=== PATIENT | female | born 1955 | race Caucasian/White ===

== ENCOUNTER 2024-09-02 15:01 | Outpatient (AMB) | payer MEDICARE, SELFPAY ==
--- NOTE | 2024-09-02 15:06 | MHC.OFFVIS ---
Vital Signs 09/02/24 15:45 Height 5 ft 7 in Weight 265 lb BMI 41.5 Intake Visit Reasons: Right knee pain Intake Note: Kevin is a 68 year old female who presents with complaints of progressively worsening right knee pain. The patient describes her pain as sharp and severe in nature. Her pain has gotten worse over the last 6 months in spite of continued non operative treatments. She has failed the last 3 months of conservative treatment which has consisted of a home exercise program, Tylenol and Aleve. She has done physical therapy exercises which aggravated her pain. She has had multiple cortisone injections. The most recent cortisone injection gave her minimal relief. She has also had viscosupplementation injections which gave her fairly good relief. She wishes to hold off on surgery for as long as possible. At this point her right knee pain is interfering with her activities of daily living and her ability to sleep well through the night. Allergies doxycycline Allergy (Unknown, Verified 09/02/24 15:42) Unknown moxifloxacin [From Avelox] Allergy (Unknown, Verified 09/02/24 15:42) Unknown sulfamethoxazole [From Bactrim] Allergy (Unknown, Verified 09/02/24 15:42) Unknown trimethoprim [From Bactrim] Allergy (Unknown, Verified 09/02/24 15:42) Unknown Medication List - Last Reconciled 09/02/24 by David Goyal MD atorvastatin mg PO DAILY bimatoprost 0.03% drps ophthalmic (eye) brinzolamide-brimonidine 1-0.2 % (Simbrinza) drps ophthalmic (eye) gabapentin mg PO 3XD oxycodone mg PO quetiapine ER mg PO warfarin 5 - 15 mg PO DAILY Physical Exam Const Other: Well-nourished well-developed very friendly female awake alert and oriented x3 in no acute distress Extrem Other: Bilateral lower extremity examination shows good capillary refill, no skin lesions noted, normal sensation light touch Right knee examination shows a minimal effusion, palpable crepitus with range of motion, pain with range of, range of motion from -3 degrees to 115 degrees, no instability Results Reviewed Results Reviewed: X-rays of the patient's right knee show joint space narrowing, subchondral sclerosis, no acute bony abnormalities Assessment & Plan Assessment & Plan (1) Right knee pain: Code(s): M25.561 - Pain in right knee Category: Medical (2) Osteoarthritis of right knee: Code(s): M17.11 - Unilateral primary osteoarthritis, right knee Category: Medical Plan Ms. Golden presents with progressively worsening right knee pain due to osteoarthritis. I had a lengthy discussion with the patient regarding the treatment options. She wishes to hold off on surgery for as long as possible. I agree with this plan. She has not gotten good relief from cortisone injections in the past. Thus, I will see if her insurance company will cover another viscosupplementation injection. I will see her back once the injection is available. She will contact me prior to that time should any questions or concerns arise. I spent 21 minutes in reviewing the patient's records and imaging studies, seeing the patient and documenting in the medical record. Orders: Orders XR knee RT 3V Today M25.561 - Pain in right knee Coding Level of Care Code Est Pt Level 3 (81224) Complex EM visit Add On G2211 Diagnoses Right knee pain M25.561 Osteoarthritis of right knee M17.11
[2024-09-02 15:45] VITALS: BMI 41.5
--- OUTSIDE RECORDS SUMMARY | 2024-09-02 18:20 | XMS_ITS ---
Author Name [facility] Organization Unknown History of Medication Use Medication Directions Dispensed Refills Start Date End Date Stat us oxycodone 10 mg tablet TAKE 1 TABLET BY MOUTH THREE TIMES A DAY active quetiapine 25 mg tablet TAKE 1 1/2 TABLET BY MOUTH TWICE A DAY NEEDED FOR AGITATION/INSOMN IA active Synvisc-One 48 mg/6 mL intra-articular syringe active gabapentin 100 mg capsule TAKE 2 CAPSULES BY MOUTH TWICE A DAY active amoxicillin 500 mg tablet TAKE 1 TABLET BY MOUTH TWICE A DAY UNTIL FINISHED 04/10/2023 completed bimatoprost 0.03 % eye drops INSTILL 1 DROP IN BOTH EYES EVERY EVENING active atorvastatin 10 mg tablet TAKE 1 TABLET BY MOUTH EVERY DAY FOR 90 DAYS active gabapentin 300 mg capsule TAKE 1 CAPSULE BY MOUTH THREE TIMES A DAY active baclofen 10 mg tablet TAKE 1 TABLET BY MOUTH 3 TIMES A DAY FOR 7 DAYS 04/10/2023 completed bimatoprost 0.03 % eye drops INSTILL 1 DROP IN BOTH EYES EVERY EVENING active warfarin 5 mg tablet TAKE 1-3 TABLETS BY MOUTH ONCE A DAY active triamcinolone acetonide 0.025 % topical ointment APPLY TO AFFECTED AREA ON LIPS TWICE A DAY FOR 2 WEEKS FOLLOWED BY [facility] NEEDED 04/10/2023 completed quetiapine ER 50 mg tablet,extended release 24 hr active multivitamin active Allergies Allergen Reaction Severity Comment Documented Date Source Statu s DOXYCYCLINE ENS_[facility] BACTRIM E[facility] AVELOX ENS_[facility]ON[facility] Problems Problem Status Onset Date Problem Type Date of Resoluti on Source Pain of left hip joint active 2022-09-26 ProblemAct [facility] Osteoarthritis of right knee joint active 2022-10-04 ProblemAct [facility] Encounters Encounter Type Encounter Reason Primary Diagnosis Location Date Ambulatory [facility] [place] 09/26/2023 Ambulatory [facility] [place] 09/25/2023 Ambulatory [facility] [place] 04/10/2023 Ambulatory [facility] [place] 01/12/2023 Ambulatory [facility] [place] 01/12/2023 Ambulatory [facility] [place] 10/04/2022
--- OUTSIDE RECORDS SUMMARY | 2024-09-02 18:20 | XMS_ITS | Clinical Summary ---
Author Organization [facility] Address [address] [place] [address] Care Team Providers Care Janitorial Maintenance Worker Name Role Phone Bakari Rosales MD Primary Care Provider [phone] Allergies Active Allergy Reactions Criticality Noted Date Comments Moxifloxacin 04/17/2017 Sulfamethoxazole-Trimethoprim 2016 Doxycycline 09/30/2021 Metronidazole 04/17/2017 Levofloxacin 04/17/2017 Medications Medication Sig Dispensed Refills Start Date End Date Status gabapentin (NEURONTIN) 100 MG capsule 0 04/01/2017 Active AFLURIA PRESERVATIVE FREE 0.5 ML injection inject 0.5 milliliter intramuscularly 0 04/03/2017 Active latanoprost (XALATAN) 0.005 % ophthalmic solution 1 03/20/2017 Activ e Oxycodone HCl 10 MG TABS take 1 tablet by mouth three times a day 0 03/29/2017 Active QUEtiapine (SEROQUEL) 25 MG tablet 0 03/18/2017 Active simvastatin (ZOCOR) tablet 20 mg 0 02/23/2017 Active warfarin (COUMADIN) 5 MG tablet 1 03/18/2017 Active fluconazole (DIFLUCAN) 100 MG tablet TAKE 1 TABLET BY MOUTH ONCE DAILY FOR 7 DAYS 0 08/08/2021 Active Active Problems Problem Noted Date Diagnosed Date Arthritis of knee, right 03/07/2018 Chronic pain of right knee 04/17/2017 Family History Medical History Relation Name Comments Bipolar disorder Brother Parkinsonism Brother Cancer Father Bipolar disorder Mother Parkinsonism Mother Relation Name Status Comments Brother Father Mother Social History Tobacco Use Types Packs/Day Years Used Date Smoking Tobacco: Never Assessed Sex and Gender Information Value Date Recorded Sex Assigned at Not on file Gender Identity Not on file Sexual Orientation Not on file Job Start Date Occupation Industry Not on file Not on file Not on file Last Filed Vital Signs Vital Sign Reading Time Taken Comments Blood Pressure - - Pulse - - Temperature - - Respiratory Rate - - Oxygen Saturation - - Inhaled Oxygen Concentration - - Weight 104.3 kg (230 lb) 04/20/2022 2:15 PM EDT Height 170.2 cm (5' 7 ) 04/17/2017 2:03 PM EDT Body Mass Index 36.02 04/17/2017 2:03 PM EDT Plan of Treatment Health Maintenance Due Date Last Done Comments Hepatitis C Screening 1955 COVID-19 Vaccine (#1) 05[birth year]27/1955 Depression Screening 1966 BMI Counseling 1972 Preventative Health Evaluation 1972 DTap / Tdap / Td (1 - Tdap) 1973 Colon Cancer Screening (Colonoscopy) 11/26/1999 Breast Cancer Screening (Mammogram) 2004 Shingrix-Zoster Vaccine (1 of 2) 2004 Fall Risk Assessment 11/26/2019 Osteoporosis Screening (DEXA Scan) 11/26/2019 Pneumococcal Vaccine (2 of 2 - PCV) 11/26/2019 04/19/2007 Influenza Vaccine (#1) 2024 04/19/2007 RSV Adult > 60+ Yrs or Pregn ant (1 - 1-dose 75+ series) 2029 Hepatitis B Vaccines Aged Out No long er eligible based on patient's age to complete this topic RSV Ped < 20 months Aged Out No longe r eligible based on patient's age to complete this topic Care Teams Janitorial Maintenance Worker Relationship Specialty Start Date End Date Bakari Rosales MD [address] [place] [address] PCP - General Internal Medicine 04/17/17
--- OUTSIDE RECORDS SUMMARY | 2024-09-02 18:43 | XMS_ITS | Clinical Summary ---
Author Organization [facility] Address [address] [place] [address] Care Team Providers Care High Reach Operator Name Role Phone Bakari Rosales MD Primary Care Provider [phone] Allergies Active Allergy Reactions Criticality Noted Date [...] age to complete this topic Care Teams High Reach Operator Relationship Specialty Start Date End Date Bakari Rosales MD [address] [place] [address] PCP - General Internal Medicine 04/17/17
--- OUTSIDE RECORDS SUMMARY | 2024-09-02 18:43 | XMS_ITS | Data Portability ---
Author Organization [place] [facility] Anahi Bashir AONE [place] Address [address] [place] [address] Care Team Providers Care Documentation Specialist Name Role Phone TOSIN HILL Primary Care Provider Assessment Encounter Date Assessment Date Assessment LastModified by Organization Details LastModified Time 09/26/2022 09/26/2022 Pleasant 66-year -old female history of left total hip replacement performed at the [facility] back in 2009. This appears to be an overuse injury. She states she was cleaning a couple of days prior for which she was in awkward positions . She has a well-seated well-positioned total hip arthroplasty with cable wires in place no obvious acute bony abnormality. She does have severe arthritis of the right hip however asymptomatic at this time. Take [id number] pain medication. She can utilize ancillary assistive walking devices for ambulation fall prevention. Did offer a 1 week follow-up appointment however she states she has a scheduled follow-up appointment on 10/11/2022. Patient understands if her symptoms worsen regarding her left hip she needs to go to ER. She also has chronic back problems for which she denies any urinary bowel changes or saddle anesthesia. Pain is managed by her primary care. Indirect care and treatment in conjunction with Dr. Goyal Additional treatment plan discussed with the patient in detail included the following; - Provider focused nonsteroidal anti-inflammatory regimen (discussed were the pros, cons, benefits and risks as well as any black box warnings) - Analgesic pain medication for pain suppression (discussed were the pros, cons, benefits and risks as well as any black box warnings) - The use of topical pain relieving medication were discussed - The use of ice to decrease inflammation and pain - The use of assistive ambulatory devices for ambulation and fall prevention - Formal specific guided physical therapy program I reviewed my findings at length with the patient today. ? ? ?We discussed the nature and etiology of this problem along with current treatment options. We discussed the expected course and outcomes and what to expect. We also discussed risks and benefits. ? ? ?All of their questions were answered today, and there was exhibited understanding and comprehension of all that was discussed. 10 minutes were spent reviewing previous imaging and charting. ? ? ?10 minutes were spent obtaining patient history. ? ? ?5 minutes were spent on physical exam. ? ? ?5? ? ?minutes were spent explaining diagnosis and assessment. Today's documentation was made using voice recognition software. This note may contain grammatical errors secondary to the software. Not available 09/26/2022 13:56:50 10/04/2022 10/04/2022 Diagnosis #1 rig ht knee osteoarthritis with arthralgia treatment plan Synvisc 1 injection after verbal consent was granted for injection of the right knee. The procedure was carried out. Patient tolerated the procedure well. Aftercare instructions were discussed in detail. Follow-up visit 3 months time for repeat clinical exam. Should her symptoms not improve she should contact my office. She agrees with the above-noted plan. Indirect care and treatment in conjunction with Dr. Stephen Additional treatment plan discussed with the patient in detail included the following; - Provider focused nonsteroidal anti-inflammatory regimen (discussed were the pros, cons, benefits and risks as well as any black box warnings) - Analgesic pain medication for pain suppression (discussed were the pros, cons, benefits and risks as well as any black box warnings) - The use of topical pain relieving medication were discussed - The use of ice to decrease inflammation and pain - The use of assistive ambulatory devices for ambulation and fall prevention - Formal specific guided physical therapy program I reviewed my findings at length with the patient today. ? ? ?We discussed the nature and etiology of this problem along with current treatment options. We discussed the expected course and outcomes and what to expect. We also discussed risks and benefits. ? ? ?All of their questions were answered today, and there was exhibited understanding and comprehension of all that was discussed. 10 minutes were spent reviewing previous imaging and charting. ? ? ?10 minutes were spent obtaining patient history. ? ? ?5 minutes were spent on physical exam. ? ? ?5? ? ?minutes were spent explaining diagnosis and assessment. Today's documentation was made using voice recognition software. This note may contain grammatical errors secondary to the software. Not available 10/04/2022 14:53:09 04/10/2023 04/10/2023 Pleasant 67-year -old female with osteoarthritis and arthralgia of the right knee joint gets good relief with viscosupplementation injection. She opted for Synvisc 1 injection of the right knee at today's visit. After verbal consent was granted. The procedure was carried out for which the patient tolerated the procedure well. Aftercare instructions were discussed in detail. Follow-up visit 6 months time for repeat clinical exam should her symptoms not improve or worsen she should immediately contact my office. The patient agrees with above-noted plan. Indirect care and treatment in conjunction with Dr. Stephen Additional treatment plan discussed with the patient (only initiated if in boldface font) otherwise not applicable. Treatment may include the following; - Provider focused nonsteroidal anti-inflammatory regimen (discussed were the pros, cons, benefits and risks as well as any black box warnings) in patients over 60 years old they should be very cautious in taking these medications due to potential decreased kidney function and or elevated blood pressure. - Analgesic pain medication for pain suppression (discussed were the pros, cons, benefits and risks as well as any black box warnings) - The use of topical pain relieving medication were discussed - The use of ice to decrease inflammation and pain - The use of assistive ambulatory devices for ambulation and fall prevention - Formal specific guided physical therapy program I reviewed my findings at length with the patient today. ? ? ?We discussed the nature and etiology of this problem along with current treatment options. We discussed the expected course and outcomes and what to expect. We also discussed risks and benefits. ? ? ? All of their questions were answered today, and there was exhibited understanding and comprehension of all that was discussed. Time Spent: 10 minutes were spent reviewing previous imaging and charting. ? ? ?10 minutes were spent obtaining patient history. ? ? ?5 minutes were spent on physical exam. ? ? ?5? ? ?minutes were spent explaining diagnosis and assessment. Today's documentation was made using voice recognition software. This note may contain grammatical errors secondary to the software. Documenting Provider: Chris Stephen MD Not available 04/11/2023 07:42:21 09/25/2023 09/25/2023 67-year-old fema le with right knee pain secondary to advanced osteoarthritis. She has an excellent track record with viscosupplementation injections. She wishes to proceed with new viscosupplementation injection. Follow-up pending insurance authorization. This patient was seen and evaluated by Bradly Arevalo MS, ELLEN in indirect conjunction with documenting/supervisin g provider Chris Stephen MD. He agrees with history, physical examination, tests/diagnostic imaging, and treatment plan. This document was generated using voice recognition software. As a result, there may be unintended spelling, grammatical and/or textual errors. [email or web address] Not available 09/25/2023 14:29:30 12/06/2023 12/06/2023 HPI: Patient presents for Synvisc One viscosupplementation injection for the treatment of right knee pain. All questions are answered to the patient's satisfaction. Exam: Knee(s) examined to show no sign of infection. Skin is intact. Score of 2 or more on Kellgren Nehemiah scale. Tenderness to palpation of joint line. Distal checks are intact. Assessment/Plan: Knee pain secondary to osteoarthritis. See the attached procedure note. Follow up per viscosupplementation protocol. Follow up sooner with any problems. This patient was seen and evaluated by Bradly Arevalo MS, ELLEN in indirect conjunction with documenting/supervisin g provider Chris Stephen MD. He agrees with history, physical examination, tests/diagnostic imaging, and treatment plan. [email or web address] Not available 12/06/2023 15:25:43 Plan of Treatment Reminders Order Date Submit Date Provider Last Modified By Organization Details Last Modified Time Details Appointments None recorded. Lab None recorded. Referral None recorded. Procedures intra-artic ular injection, knee, viscosupple ment (PROC) - Please check insurance for [employer] on, insurance preferred med.Knee Laterality: Right*Tod means have to wait until early October 2023 before she qualifies for viscosupple mentation. 2023 024 [email or web address] Not available 15:52:31 Surgeries None recorded. Imaging XR, knee, 3 view 2022 023 [facility], [address], [place], [address], 3 06:56:42 XR, hip, bilateral, 3 or 4 view 2022 023 [facility], [address], [place], [address], 3 08:15:35 Medication Orders Synvisc-One 48 mg/6 mL intra-artic ular syringe 2023 024 [email or web address] [id number], [address] [place], [address], 4 15:50:49 Synvisc-One 48 mg/6 mL intra-artic ular syringe 2022 023 [id number], [address] [place], [address], 3 06:56:42 Synvisc-One 48 mg/6 mL intra-artic ular syringe 2022 023 [id number], [address], [place], [id number], 3 16:27:24 Patient TargetsNo targets recorded. Patient Instructions Encounter Date Encounter Id Patient Instructions Last Modified By Organization Details Last Modified Time 09/26/2022 [id number] well-seated well-positioned total hip arthroplasty with cable wires in place no obvious acute bony abnormality. She does have severe arthritis of the right hip. Not available 09/26/2022 13:56:11 10/04/2022 [id number] You have been provided with a viscosupplementation injection in order to reduce the pain that you are experiencing from your arthritis. The injection consists of a lubricating injection called hyaluronic acid. Please note that not everyone will have a lasting response following the injection. PATIENT INSTRUCTIONS I recommend icing the affected area for 20 minutes 3-4 times per day. It is recommended that you refrain from any high level activities using the joint or limb that was injected for approximately 24-48 hours. Normal day-to-day activities are generally not a problem. POSSIBLE SIDE EFFECTS Individuals with dark complexions may experience some skin discoloration locally at the site of the injection. There is the possibility of an increase in discomfort within 48 hours following the injection. This is called a ? f lare? . To help minimize the chances of this, please see the post-injection instructions above. There is a less than 1% chance of an infection. If you notice any signs of infection (redness, warmth, drainage, fever greater than 100 degrees) please call our office or contact us through the portal AGUSTIN. Not available 10/04/2022 14:53:56 04/10/2023 [id number] You have been pr ovided with a viscosupplementation injection in order to reduce the pain that you are experiencing from your arthritis. The injection consists of a lubricating injection called hyaluronic acid. Please note that not everyone will have a lasting response following the injection. PATIENT INSTRUCTIONS I recommend icing the affected area for 20 minutes 3-4 times per day. It is recommended that you refrain from any high level activities using the joint or limb that was injected for approximately 24-48 hours. Normal day-to-day activities are generally not a problem. POSSIBLE SIDE EFFECTS Individuals with dark complexions may experience some skin discoloration locally at the site of the injection. There is the possibility of an increase in discomfort within 48 hours following the injection. This is called a ? f lare? . To help minimize the chances of this, please see the post-injection instructions above. There is a less than 1% chance of an infection. If you notice any signs of infection (redness, warmth, drainage, fever greater than 100 degrees) please call our office or contact us through the portal AGUSTIN. Not available 04/10/2023 14:37:52 X-rays performed at today's visit AP, lateral of the right knee revealed predominantly lateral compartment patellofemoral compartment grade 4 degenerative changes without acute bony abnormality. She was unable to tolerate the positioning of sunrise view so therefore this was deferred. Not available 04/11/2023 07:38:25 12/06/2023 [id number] You have been pr ovided with a viscosupplementation injection in order to reduce the pain that you are experiencing from your arthritis. The injection consists of a lubricating injection called hyaluronic acid. Please note that not everyone will have a lasting response following the injection. PATIENT INSTRUCTIONS I recommend icing the affected area for 20 minutes 3-4 times per day. It is recommended that you refrain from any high level activities using the joint or limb that was injected for approximately 24-48 hours. Normal day-to-day activities are generally not a problem. POSSIBLE SIDE EFFECTS Individuals with dark complexions may experience some skin discoloration locally at the site of the injection. There is the possibility of an increase in discomfort within 48 hours following the injection. This is called a ? f lare? . To help minimize the chances of this, please see the post-injection instructions above. There is a less than 1% chance of an infection. If you notice any signs of infection (redness, warmth, drainage, fever greater than 100 degrees) please call our office or contact us through the portal [facility]USTIN. [email or web address] Not available 12/06/2023 14:55:35 Reason for Referral None Reported. Problems Name Problem SNOMED Code Status Onset Date Resolution Date Notes Provider Name and Address Organization Details Recorded Time Pain of left hip joint 8818872650625 00 Active 2022 BRADLY SANZ PA-C [address], [place], [address], [place] [facility] 3 13:54:39 Osteoarthri tis of right knee joint 0881246110908 00 Active 2022 BRADLY SANZ PA-C [address], [place], [address], [place] [facility] 3 14:53:22 Problem Notes None recorded. Procedures Surgical History Date Name Laterality Status Provider Name and Address Organization Details Recorded Time 12/06/2023 Synvisc-On e Knee Inj w/US completed BRADLY AREVALO PA-C [address], [place], [address], [place] [facility] 12/06/2023 15:23:47 04/10/2023 Synvisc-On e Knee Inj completed BRADLY SANZ PA-C [address] [facility],[address], [place], [address], [facility] 04/11/2023 07:41:08 10/04/2022 Synvisc-On e Knee Inj completed BRADLY SANZ PA-C [address] [facility],[address], [place], [address], [facility] 10/04/2022 14:52:33 Imaging Results None recorded. Procedure Notes None recorded. Medical Equipment None Reported. Allergies Allergen ID Allergen Name Allergen Category Reaction Reaction Severity Criticality Documentation Date Start Date Code Code System Note Provider Name and Address Organization Details Recorded Time 1506 Avelox medicatio n Not available Not available Not available 09/26/2022 27886 6 RxNorm Rosa Maria rivera, [facility], [facility] 3 13:15:24 1508 Bactrim medicatio n Not available Not available Not available 09/26/2022 93892 9 RxNorm Rosa Maria rivera, [facility], [facility] 3 13:15:32 1510 doxycycli ne Not available Not available Not available Not available 09/26/2022 3640 RxNorm Rosa Maria rivera, [facility], [facility] 3 13:15:38 Medications Name Sig Start Date Stop Date Status Note LastModified by Organization Details LastModified Time quetiapine 25 mg tablet TAKE 1 & 1/2 TABLET BY MOUTH TWICE A DAY NEEDED FOR AGITATION /INSOMNIA active Not Available Not Available No t Available latanoprost 0.005 % eye drops INSTILL 1 DROP IN BOTH EYES AT BEDTIME 04/10 completed Not Available Not Available Not Available atorvastati n 10 mg tablet TAKE 1 TABLET BY MOUTH EVERY DAY FOR 90 DAYS active Not Available Not Available No t Available travoprost 0.004 % eye drops INSTILL 1 DROP IN BOTH EYES EVERY NIGHT DIRECTED 09/24 completed Not Available Not Available Not Available bimatoprost 0.03 % eye drops INSTILL 1 DROP IN BOTH EYES EVERY EVENING active Not Available Not Available No t Available amoxicillin 500 mg tablet TAKE 1 TABLET BY MOUTH TWICE A DAY UNTIL FINISHED 04/10 completed Not Available Not Available Not Available baclofen 10 mg tablet TAKE 1 TABLET BY MOUTH 3 TIMES A DAY FOR 7 DAYS 04/10 completed Not Available Not Available Not Available simvastatin 20 mg tablet TAKE 1 TABLET BY MOUTH EVERY DAY AT BEDTIME FOR 90 DAYS 04/10 completed Not Available Not Available Not Available warfarin 5 mg tablet TAKE 1-3 TABLETS BY MOUTH ONCE A DAY active Not Available Not Available No t Available triamcinolo ne acetonide 0.025 % topical ointment APPLY TO AFFECTED AREA ON LIPS TWICE A DAY FOR 2 WEEKS FOLLOWED BY [facility] NEEDED 04/10 completed Not Available Not Available Not Available gabapentin 300 mg capsule TAKE 1 CAPSULE BY MOUTH THREE TIMES A DAY active Not Available Not Available No t Available gabapentin 100 mg capsule TAKE 2 CAPSULE BY MOUTH TWICE A DAY & 1 CAPSULE AT 13:00 active Not Available Not Available No t Available amoxicillin 875 mg-potassiu m clavulanate 125 mg tablet TAKE 1 TABLET BY MOUTH TWICE A DAY FOR 10 DAYS 04/10 completed Not Available Not Available Not Available ciclopirox 0.77 % topical cream APPLY TWICE A DAY TO AFFECTED AREAS UNDER BREASTS AND GROIN 09/24 completed Not Available Not Available Not Available CoQ10 active Not Available Not Availa ble Not Available multivitami n active Not Available Not Available Not Available bimatoprost active Not Available Not A vailable Not Available oxycodone 10 mg tablet TAKE 1 TABLET BY MOUTH 3 TIMES A DAY active Not Available Not Available No t Available quetiapine ER 50 mg tablet,exte nded release 24 hr active Not Available Not Available Not Available Synvisc-One 48 mg/6 mL intra-artic ular syringe Take 48 mg by intraarti cular route. 2023 active Not Available Not Available Not Avai lable Probiotic active Not Available Not Esperanza ilable Not Available Vitals Date Recorded Body height Body mass index (BMI) Body weight Provider Name and Address Organization Details Last Updated DateTime 09/25/2023 170.18 cm 41.5 kg/m2 834975.[address] [place] [facility] 09/25/2023 14:16:33 Date Recorded Body height Provider Name an d Address Organization Details Last Updated DateTime 12/06/2023 170.[address] [place] [facility] 12/06/2023 14:55:43 Date Recorded Body weight Provider Name an d Address Organization Details Last Updated DateTime 09/26/2022 550226.25 g Rosa Maria [place] [facility] 09/26/2022 13:17:44 Social History Question Answer Notes LastModified by Organizat ion Details LastModified Time Tobacco Smoking Status Never Smoker Kristie rivera, [place] [facility] 09/25/2023 14:16:54 What Is Your Level Of Alcohol Consumption? None Information not available 09/25/2023 Do You Use Any Illicit Or Recreational Drugs? No Information not available 09/25/2023 Do You Or Have You Ever Used Any Other Forms Of Tobacco Or Nicotine? No Information not available 09/25/2023 Sex: Unknown Functional Status None recorded. Mental Status None recorded. Family History Nothing Reported. Medical History Condition Response Hyperthyroidism Y Arthritis Y Gynecological HistoryNo gynecological history recorded. Obstetrics History GPAL:G 0 P 0 0 0 0 Past Encounters Encounter ID Performer Location Encounter Start Date Encounter Closed Date Diagnosis/Indication Diagnosis SNOMED-CT Code Diagnosis ICD10 Code Diagnosis Note [id number] MD ROBINA Sosa [address] [facility] [address] [place] [address] 09/26/2022 13:10:22 09/26/2022 13:54:13 Bilateral hip joint pain 4592949111 9526670 M25.551 M25.552 Pain of le ft hip joint 4708235200 28941 M25.552 History of total replacement of left hip joint 8892147797 667638 Z96.642 [id number] MD ROBINA Hopkins [address] [facility] [address] [place] [address] 10/04/2022 13:50:47 10/04/2022 14:25:48 Osteoarthritis of right knee joint 9335409831 71178 M17.11 Osteoarthr itis of knee 896762595 M17.9 [id number] MD ROBINA Hopkins [address] [facility] [address] [place] [address] 04/10/2023 14:31:58 04/10/2023 15:12:27 Pain of right knee joint 8168968270 38904 M25.561 Osteoarthr itis of right knee joint 6413847194 55469 M17.11 [id number] MD ROBINA Hopkins [place] [address] [facility] [address] [place] [address] 09/25/2023 14:03:51 09/25/2023 14:27:26 Osteoarthritis of right knee joint 7026540842 66658 M17.11 [id number] ELLEN RAMOS [facility] [address] [facility] [address] [place] [address] 12/06/2023 14:49:09 12/06/2023 15:25:28 Osteoarthritis of right knee joint 8583080814 M17.11 Health Concerns Section Related Observation LastModified by Organization Detai ls LastModified Time None Recorded Concern Status LastModified by Organization Details LastModified Time None Recorded Advance Directives Directive None Recorded Payers Encounter Date Sequence Insurance Name Policy Number Policy Sanchez Covered Member ID Sanchez Member ID Guarantor Name 09/26/2022 1 [place] Cassandrajanel Deena Golden [id number] 09/26/2022 2 [place] Ish Golden [id number] [facility] 10/04/2022 1 [place] Kevin Deena Golden [id number] 10/04/2022 2 [place] Ish Golden [id number] Kevin Golden 04/10/2023 1 [place] Cassandrajanel Deena Golden [id number] [facility] Golden 04/10/2023 2 [place] Ish Golden [id number] Kevin Golden 09/25/2023 1 [place] Kevin Golden [id number] Kevin Golden 09/25/2023 2 [place]PLOYEE PROGRAM 113 Ish Golden [id number] Kevin Golden 12/06/2023 1 [place] Kevin Golden [id number] Kevin Golden 12/06/2023 2 [facility]: FEDERAL EMPLOYEE PROGRAM Ish Golden [id number] Kevin Golden Notes Date Note Type Note Provider Name and Address Organization Details Recorded Time 3 text/html This is a very pleasant 66-year-old female here for same-day visit with chief complaint of severe left groin pain onset of symptoms yesterday for which she said was a excruciating . She states she is on chronic narcotic pain medication by her primary care due to chronic back problems and generalized pain syndrome. She has history of left total hip replacement done at the [facility] back in 2009. Patient states that she was cleaning on the floor in awkward positions approximately 2 days ago which may have been an exacerbating factor. She in fact states that she has improvement of her symptoms She denies any falls or trauma denies any fevers, chills, flulike symptoms, cough, warmth overlying the left hip joint. BRADLY SANZ PA-C [address] [facility],[address], [address], [place] [facility] 09/27/2022 08:36:45 3 text/html Pleasant 66-year-old female with degenerative joint disease of the right knee. Try to limit the amount of cortisone injection she receives. She states she gets good relief with viscosupplementation injection. She is here for Synvisc 1 injection of the right knee. Pain is medial in nature with walking she does utilize a walker due to chronic hip and back problems. She is currently not a ideal candidate for surgery due to elevated BMI and comorbidities. BRADLY SANZ PA-C [address] [facility],[address] [address], [place], [address], [place] [facility] 10/04/2022 14:54:36 3 text/html This is a pleasant 67-year-old female with severe osteoarthritis of the right knee joint gets good relief with viscosupplementation injection. Its been greater than 6 months since her last injection which suits her well however is since worn off. Her pain is generalized in nature overlying the right knee. She does have a history of chronic lymphedema. She takes ajzd-tsh-cvqwyaj pain medication for symptomatic relief. She denies any fevers or chills denies any flulike symptoms. She also denies any warmth overlying the right knee joint or any abnormal swelling or redness. She grants verbal consent for Synvisc 1 injection of the right knee joint. X-rays performed at today's visit AP, lateral of the right knee revealed predominantly lateral compartment patellofemoral compartment grade 4 degenerative changes without acute bony abnormality. She was unable to tolerate the positioning of sunrise view so therefore this was deferred. BRADLY SANZ PA-C [address] [facility] [address], [place], [address], [place] [facility] 04/11/2023 07:43:55 4 text/html 67-year-old female presents with chief complaint of right knee pain. She has known osteoarthritis of the right knee which has been present for many years. She has been under the care of Bradly Sanz up until his recent heart or from this practice. He has treated her with viscosupplementation injections with excellent results. She has had approximately 6 lifetime injections of viscosupplementation to the right knee. The most recent was approximately 5 months ago. She has begun to experience some weakness at the knee and is anticipating recurrence of her classic osteoarthritis symptoms. She is hopeful to initiate the process of authorization for a new series of viscosupplementation. Otherwise, there has been no substantial change in character quality or location of her symptoms. BRADLY AREVALO PA-C [address], [place], [address], [place] [facility] 09/25/2023 14:30:34 OBGyn Episode No OBEpisode recorded.
== END 2024-09-02 15:56 | disposition home or self-care (01) ==
PROVIDERS: Visit Provider Orthopaedic Surgery
DX: M17.11 Unilateral primary osteoarthritis, right knee (principal)
CPT/HCPCS: 99213; G2211

== ENCOUNTER 2024-09-02 15:17 | Outpatient (REF) | payer BC, MEDICARE, SELFPAY ==
--- NOTE | ~2024-09-02 | XR_ITS ---
CLINICAL HISTORY: M25.561 - Pain in right knee 3 view right knee Comparison: None Findings: There is moderately severe lateral compartment joint space narrowing Trace right knee joint effusion. No fracture or acute malalignment Impression: Moderately severe lateral compartment joint space narrowing. Trace knee joint effusion. This document has been electronically signed by: Fernando Sahu MD on 09/04/2024 07:46:33
--- OUTSIDE RECORDS SUMMARY | 2024-09-03 18:03 | XMS_ITS | Clinical Summary ---
Author Organization [facility] Address [address] [place] [address] Care Team Providers Care Director Of Anesthesia Services Name Role Phone Bakari Rosales MD Primary Care Provider [phone] Allergies Active Allergy Reactions Criticality Noted Date [...] age to complete this topic Care Teams Director Of Anesthesia Services Relationship Specialty Start Date End Date Bakari Rosales MD [address] [place] [address] PCP - General Internal Medicine 04/17/17
== END 2024-09-02 15:18 | disposition home or self-care (01) ==
LOC: HO.HOSX 15:17
PROVIDERS: Visit Provider Orthopaedic Surgery
DX: M25.561 Pain in right knee (principal); M17.11 Unilateral primary osteoarthritis, right knee
CPT/HCPCS: 73562; 99212

== ENCOUNTER → 2024-09-02 15:17 | Outpatient (BNV) | payer BC, MEDICARE, SELFPAY | PROVIDERS: Visit Provider Radiology Vascular & Interventional Radiology | DX: M25.861 Other specified joint disorders, right knee (principal) | CPT/HCPCS: 73562 ==

== ENCOUNTER 2024-09-18 14:58 | Outpatient (AMB) | payer MEDICARE, BC, SELFPAY ==
--- NOTE | 2024-09-18 15:00 | MHC.OFFVIS ---
Vital Signs 09/18/24 15:03 Height 5 ft 7 in Weight 265 lb BMI 41.5 Intake Visit Reasons: Right knee pain Intake Note: Kevin is a 68 year old female who presents with complaints of progressively worsening right knee pain. The patient describes her pain as sharp and severe in nature. Her pain has gotten worse over the last 6 months in spite of continued non operative treatments. She has failed the last 3 months of conservative treatment which has consisted of a home exercise program, Tylenol and Aleve. She has done physical therapy exercises which aggravated her pain. She has had multiple cortisone injections. The most recent cortisone injection gave her minimal relief. She has also had viscosupplementation injections which gave her fairly good relief. She wishes to hold off on surgery for as long as possible. At this point her right knee pain is interfering with her activities of daily living and her ability to sleep well through the night. Allergies doxycycline Allergy (Unknown, Verified 09/18/24 15:03) Unknown moxifloxacin [From Avelox] Allergy (Unknown, Verified 09/18/24 15:03) Unknown sulfamethoxazole [From Bactrim] Allergy (Unknown, Verified 09/18/24 15:03) Unknown trimethoprim [From Bactrim] Allergy (Unknown, Verified 09/18/24 15:03) Unknown Medication List - Last Reconciled 09/19/24 by David Goyal MD atorvastatin mg PO DAILY bimatoprost 0.03% drps ophthalmic (eye) brinzolamide-brimonidine 1-0.2 % (Simbrinza) drps ophthalmic (eye) gabapentin mg PO 3XD oxycodone mg PO quetiapine ER mg PO warfarin 5 - 15 mg PO DAILY Physical Exam Vital Signs: BMI result Body Mass Index 41.5 Const Other: Well-nourished well-developed very friendly female awake alert and oriented x3 in no acute distress Extrem Other: Bilateral lower extremity examination shows good capillary refill, no skin lesions noted, normal sensation light touch Right knee examination shows a minimal effusion, palpable crepitus with range of motion, pain with range of motion, no instability Office Procedures AMB Joint Injection/Aspiration Joint Injection/Aspiration Primary Site: right knee Prep: site was prepped using aseptic technique Injected: 60 mg of (Durolane viscosupplementation) and 1% plain lidocaine Procedure: The patient tolerated the procedure well Coding - Large joint Procedure code (CPT) selection complete Results Reviewed Results Reviewed: X-rays of the patient's right knee show joint space narrowing, subchondral sclerosis, no acute bony abnormalities Assessment & Plan Assessment & Plan (1) Osteoarthritis of right knee: Code(s): M17.11 - Unilateral primary osteoarthritis, right knee Category: Medical (2) Right knee pain: Code(s): M25.561 - Pain in right knee Category: Medical Plan Ms. Golden presents with right knee pain due to osteoarthritis. The risks and benefits of a Durolane viscosupplementation injection were discussed at length with the patient. The patient wished to proceed. She tolerated the injection well. She will continue with her home exercise program. She will contact me prior to her follow-up appointment in 3 months should any questions or concerns arise. Feel free to call me at any time should questions regarding her orthopedic management arise. I spent 20 minutes in reviewing the patient's records and imaging studies, seeing the patient and documenting in the medical record. Orders: Orders AMB Joint Injection/Aspiration 09/18/24 M17.11 - Unilateral primary osteoarthritis, right knee Coding Level of Care Code Est Pt Level 3 (72647) Complex EM visit Add On G2211 Diagnoses Osteoarthritis of right knee M17.11 Right knee pain M25.561 CPT Codes Coding - Large joint: 76131 - Large joint ([id number])
[2024-09-18 15:03] VITALS: BMI 41.5
== END 2024-09-18 15:24 | disposition home or self-care (01) ==
LOC: HO.HOS 14:59
PROVIDERS: Visit Provider Orthopaedic Surgery
DX: M17.11 Unilateral primary osteoarthritis, right knee (principal)
CPT/HCPCS: 20610; 99213

== ENCOUNTER → 2024-09-18 14:58 | Outpatient (BNVA) | payer MEDICARE, BC, SELFPAY | PROVIDERS: Visit Provider Orthopaedic Surgery | DX: M17.11 Unilateral primary osteoarthritis, right knee (principal) | CPT/HCPCS: 20610; 99212; J2003; J7318 ==

== ENCOUNTER 2025-06-04 14:28 | Outpatient (AMB) | payer MEDICARE, BC, SELFPAY ==
[2025-06-04 14:30] VITALS: BMI 41.5
--- NOTE | 2025-06-04 14:30 | MHC.OFFVIS ---
Vital Signs 06/04/25 14:30 Height 5 ft 7 in Weight 265 lb BMI 41.5 Intake Visit Reasons: right knee Durolane Intake Note: Kevin is a 68 year old female who presents with complaints of progressively worsening right knee pain. She describes her pain as sharp in nature. She has failed the last 3 months of conservative treatment. She wishes to hold off on surgery if at all possible. Allergies doxycycline Allergy (Unknown, Verified 06/04/25 14:30) Unknown moxifloxacin (From Avelox) Allergy (Unknown, Verified 06/04/25 14:30) Unknown sulfamethoxazole (From Bactrim) Allergy (Unknown, Verified 06/04/25 14:30) Unknown trimethoprim (From Bactrim) Allergy (Unknown, Verified 06/04/25 14:30) Unknown Medication List - Last Reconciled 06/05/25 by David Goyal MD atorvastatin mg PO DAILY bimatoprost 0.03% drps ophthalmic (eye) brinzolamide-brimonidine 1-0.2 % (Simbrinza) drps ophthalmic (eye) gabapentin mg PO 3XD oxycodone mg PO quetiapine ER mg PO warfarin 5 - 15 mg PO DAILY Physical Exam Vital Signs: BMI result Body Mass Index 41.5 Extrem Other: Right knee examination shows a minimal effusion, palpable crepitus with range of motion, pain with range of motion, no instability Office Procedures AMB Joint Injection/Aspiration Joint Injection/Aspiration Primary Site: Right Knee Prep: site was prepped using aseptic technique Injected: 60 mg of, Durolane, with 3 mL of and 1% plain Lidocaine Procedure: The patient tolerated the procedure well Coding 94664 - Large joint Procedure code (CPT) selection complete Results Reviewed Results Reviewed: X-rays of the patient's right knee taken previously show joint space narrowing, subchondral sclerosis, no acute bony abnormalities Assessment & Plan Assessment & Plan (1) Osteoarthritis of right knee: Code(s): M17.11 - Unilateral primary osteoarthritis, right knee Category: Medical Plan Ms. Golden presents with right knee pain due to osteoarthritis. The risks and benefits of a right knee Durolane viscosupplementation injection were discussed at length with the patient. The patient wished to proceed. She tolerated the injection well. She will continue with her home exercise program. She will contact me prior to her follow-up appointment in 3 months should any questions or concerns arise. I spent 20 minutes in reviewing the patient's records and imaging studies, seeing the patient and documenting in the medical record. Orders: Orders AMB Joint Injection/Aspiration 06/04/25 M17.11 - Unilateral primary osteoarthritis, right knee Coding Level of Care Code Est Pt Level 3 (91348) Add On Problem Visit Only Diagnoses Osteoarthritis of right knee M17.11 CPT Codes Coding - 69950 Large joint: 83823 - Large joint ([id number])
--- OUTSIDE RECORDS SUMMARY | 2025-06-04 22:07 | XMS_ITS | Data Portability ---
Author Organization [place] [facility]ir [facility] [place] Address [address] [place] [address] Care Team Providers Care Ammonia Nitrate Operator Name Role Phone LIZ TOSIN Primary Care Provider [phone] Assessment Encounter Date Assessment Date Assessment LastModified by Organization Details LastModified Time 09/26/2022 09/26/2022 Pleasant 66-year -old female history of left total hip replacement performed at the [facility] back in 2009. This appears to be an overuse injury. She states she was cleaning a couple of days prior for which she was in awkward positions . She has a well-seated well-positioned total hip arthroplasty with cable wires in place no obvious acute bony abnormality. She does have severe arthritis of the right hip however asymptomatic at this time. Take kfvy-fjm-isybvou pain medication. She can utilize ancillary assistive [...] findings at length with the patient today. We discussed the nature and etiology of this problem along with current treatment options. We discussed the expected course and outcomes and what to expect. We also discussed risks and benefits. All of their questions were answered today, and there was exhibited understanding and comprehension of all that was discussed. 10 minutes were spent reviewing previous imaging and charting. 10 minutes were spent obtaining patient history. 5 minutes were spent on physical exam. 5minutes were spent explaining diagnosis and assessment. Today's [...] findings at length with the patient today. We discussed the nature and etiology of this problem along with current treatment options. We discussed the expected course and outcomes and what to expect. We also discussed risks and benefits. All of their questions were answered today, and there was exhibited understanding and comprehension of all that was discussed. 10 minutes were spent reviewing previous imaging and charting. 10 minutes were spent obtaining patient history. 5 minutes were spent on physical exam. 5minutes were spent explaining diagnosis and assessment. Today's [...] findings at length with the patient today. We discussed the nature and etiology of this problem along with current treatment options. We discussed the expected course and outcomes and what to expect. We also discussed risks and benefits. All of their questions were answered today, and there was exhibited understanding and comprehension of all that was discussed. Time Spent: 10 minutes were spent reviewing previous imaging and charting. 10 minutes were spent obtaining patient history. 5 minutes were spent on physical exam. 5minutes were spent explaining diagnosis and assessment. Today's [...] patient was seen and evaluated by Bradly Robin MS, ELLEN in indirect conjunction with documenting/supervisin [...] patient was seen and evaluated by Bradly Robin MS, ELLEN in indirect conjunction with documenting/supervisin [...] insurance for [employer] on, insurance preferred med. Knee Laterality: Right *May have to wait until early October 2023 before she qualifies for viscosupple mentation. 2023 024 [email or web address] Not available 4 15:52:31 Surgeries None recorded. Imaging XR, knee, 3 view 2022 023 [facility], [address], [place], [address], 3 06:56:42 XR, hip, bilateral, 3 or 4 view 2022 023 [facility], [address], [place], [address], 3 08:15:35 Medication Orders Synvisc-One 48 mg/6 mL intra-artic ular syringe 2023 024 [email or web address] [id number], [address] [place], [address], 4 15:50:49 Synvisc-One 48 mg/6 mL intra-artic ular syringe 2022 023 [id number], [address] [place], [address], 3 06:56:42 Synvisc-One 48 mg/6 mL intra-artic ular syringe 2022 023 [id number], [address], [place], [id number], 3 16:27:24 Patient TargetsNo targets recorded. Patient InstructionsNo instructions recorded. Reason for Referral None Reported. Problems Name Problem SNOMED Code Status Onset Date Resolution Date Notes Provider Name and Address Organization Details Recorded Time Pain of knee region 8343447207 Active 2016 Chronic pain of right knee Not Available [facility] 5 23:24:44 Arthritis of right knee joint 92574117340 88017 Active 2017 Arthritis of knee, right Not Available [facility] 5 23:24:44 Pain of left hip joint 14330596984 9100 Active 2022 BRADLY SANZ PA-C [address], [place], [address] , [place] - [facility] 3 13:54:39 Osteoarth ritis of right knee joint 11782465387 9100 Active 2022 BRADLY SANZ PA-C [address], [place], [address] , [place] [facility] 3 14:53:22 Problem Notes None recorded. Procedures Surgical History Date Name Laterality Status Provider Name and Address Organization Details Recorded Time 12/06/2023 Synvisc-On e Knee Inj w/US completed BRADLY ROBIN PA-C [address] [facility] [address], [place], [address], [place] [facility], [facility] 12/06/2023 15:23:47 04/10/2023 Synvisc-On e Knee Inj completed BRADLY SANZ PA-C [address] [facility] [address], [place], [address], [place] [facility] 04/11/2023 07:41:08 10/04/2022 Synvisc-On e Knee Inj completed BRADLY SANZ PA-C [address] [facility],[address] [address], [place], [address], [place] [facility], [facility] 10/04/2022 14:52:33 Imaging Results None recorded. Procedure Notes None recorded. Medical Equipment None Reported. Allergies Allergen ID Allergen Name Allergen Category Reaction Reaction Severity Criticality Documentation Date Start Date Code Code System Note Provider Name and Address Organization Details Recorded Time 1506 Avelox medicatio n Not available Not available Not available 09/26/2022 50739 6 RxNorm Rosa Maria rivera, [facility] 3 13:15:24 1508 Bactrim medicatio n Not available Not available Not available 09/26/2022 77724 9 RxNorm Rosa Maria rivera, [facility], [facility] 3 13:15:32 1510 doxycycli ne Not available Not available Not available Not available 09/26/2022 3640 RxNorm Rosa Maria rivera, [facility], [facility] 3 13:15:38 05309 metronida zole medicatio n Not available Not available Not available 03/17/20252016 6922 RxNorm Not Available [facility] 5 01:21:28 01282 sulfameth oxazole / trimethop rim medicatio n Not available Not available Not available 03/17/20252016 67319 RxNorm Not Available [facility] 5 01:21:28 76882 levofloxa demi medicatio n Not available Not available Not available 03/17/20252016 83441 RxNorm Not Available [facility] 5 01:21:28 23608 moxifloxa demi medicatio n Not available Not available Not available 03/17/20252016 86201 2 RxNorm Not Available [facility] 5 01:21:29 Medications Name Sig Start Date Stop Date Status Note LastModified by Organization Details LastModified Time quetiapine 25 mg tablet TAKE 1 & 1/2 TABLET BY MOUTH TWICE A DAY NEEDED FOR AGITATION /INSOMNIA active Not Available Not Available No t Available latanoprost 0.005 % eye drops INSTILL 1 DROP IN BOTH EYES AT BEDTIME 04/10 completed Not Available Not Available Not Available fluconazole 100 mg tablet TAKE 1 TABLET BY MOUTH ONCE DAILY FOR 7 DAYS 2021 active Not Available Not Available Not Avai lable atorvastati n 10 mg tablet TAKE 1 [...] completed Not Available Not Available Not Available methylpredn isolone acetate 40 mg/mL suspension for injection 11/14 completed Not Available Not Available Not Available [...] Not Available Not A vailable Not Available lidocaine (PF) 10 mg/mL (1 %) injection solution 04/06 completed Not Available Not Available Not Available oxycodone 10 mg tablet TAKE [...] Not Available Not Esperanza ilable Not Available hyaluronate sodium, stabilized 88 mg/4 mL intra-artic ular syringe 04/06 completed Not Available Not Available Not Available hyaluronate sodium, stabilized 60 mg/3 mL intra-artic ular syringe 09/30 completed Not Available Not Available Not Available Afluria Triv 7031-3712 (PF) 45 mcg (15 mcg x 3)/0.5 mL IM syringe inject 0.5 millilite r intramusc ularly 2016 active Not Available Not Available Not Avai lable Vitals Date Recorded Body height Body mass index (BMI) Body weight Provider Name and Address Organization Details Last Updated DateTime 09/25/2023 170.18 cm 41.5 kg/m2 554026.[address] [place] [facility] 09/25/2023 14:16:33 Date Recorded Body weight Provider Name an d Address Organization Details Last Updated DateTime 09/26/[address] [place] [facility] 09/26/2022 13:17:44 Date Recorded Body height Provider Name an d Address Organization Details Last Updated DateTime 12/06/2023 170.[address] [place] [facility] 12/06/2023 14:55:43 Social History None recorded. Functional Status Question Answer Note LastModified by Organizat ion Details LastModified Time Do you use any illicit or recreational drugs? No Information not available 09/25/2023 Do you or have you ever used any other forms of tobacco or nicotine? No Information not available 09/25/2023 What is your level of alcohol consumption? None ries5 Information not available 09/25/2023 Mental Status None recorded. Family History Nothing Reported. Medical History Condition Response Hyperthyroidism Y Arthritis Y Gynecological HistoryNo gynecological history recorded. Obstetrics History GPAL:G 0 P 0 0 0 0 Past Encounters Encounter ID Performer Location Encounter Start Date Encounter Closed Date Diagnosis/Indication Diagnosis SNOMED-CT Code Diagnosis ICD10 Code Diagnosis IMO Codes Diagnosis Note [id number] ELLEN GUSMAN [address] [address] 09/26/2022 13:10:22 09/26/2022 13:54:13 Pain of bilateral hip joints 4833790284 8595504 M25.551 M25.552 Pain of le ft hip joint 3374970960 29330 M25.552 History of total replacement of left hip joint 8349589907 460319 Z96.642 [id number] ELLEN GUSMAN [address] [address] 10/04/2022 13:50:47 10/04/2022 14:25:48 Osteoarthritis of right knee joint 0513250627 40415 M17.11 Osteoarthr itis of knee 566749776 M17.9 [id number] ELLEN GUSMAN [address] [facility] [address] [place] [address] 04/10/2023 14:31:58 04/10/2023 15:12:27 Pain of right knee joint 2219952287 21738 M25.561 Osteoarthr itis of right knee joint 6846908230 25817 M17.11 [id number] ELLEN RAMOS [place] [address] [facility] [address] [place] [address] 09/25/2023 14:03:51 09/25/2023 14:27:26 Osteoarthritis of right knee joint 4010802810 13290 M17.11 [id number] ELLEN RAMOS [facility] [address] [facility] [address] [place] [address] 12/06/2023 14:49:09 12/06/2023 15:25:28 Osteoarthritis of right knee joint 7259726088 29191 M17.11 Health Concerns Section Related Observation LastModified by Organization Detai ls LastModified Time None Recorded Concern Status LastModified by Organization Details LastModified Time None Recorded Advance Directives Directive None Recorded Payers Insurance Date Sequence Insurance Name Policy Number Policy Sanchez Covered Member ID Sanchez Member ID Guarantor Name 09/25/2023 1 [place]ARE [place]: [place]GS Kevin Golden [id number] Kevin Golden 09/25/2023 2 [place] [facility] [employer] [address] Golden [id number] Kevin Golden Notes Date Note Type Note [...] left total hip replacement done at the [facility] back in 2009. Patient states that she was cleaning on the floor in awkward positions approximately 2 days ago which may have been an exacerbating factor. She in fact states that she has improvement of her symptoms She denies any falls or trauma denies any fevers, chills, flulike symptoms, cough, warmth overlying the left hip joint. BRADLY SANZ PA-C [address] [facility],[address], [place], [address], [place] [facility] 09/27/2022 08:36:45 3 text/html Pleasant 66-year-old [...] BMI and comorbidities. BRADLY SANZ PA-C [address] [facility],[address], [place], [address], [place] [facility] 10/04/2022 14:54:36 3 text/html This is [...] a history of chronic lymphedema. She takes twqv-tmg-wpxouqp pain medication for symptomatic relief. She denies [...] this was deferred. BRADLY SANZ PA-C [address] [facility],[address], [place], [address], [place] [facility] 04/11/2023 07:43:55 4 text/html 67-year-old female [...] quality or location of her symptoms. BRADLY ROBIN PA-C [address], [place], [address], [place] [facility] 09/25/2023 14:30:34 OBGyn Episode No OBEpisode recorded.
--- OUTSIDE RECORDS SUMMARY | 2025-06-04 22:07 | XMS_ITS | Clinical Summary ---
Author Organization [facility] Prior to 11/22/24 Address [address] [place] [address] Care Team Providers Care Limb Driver Name Role Phone Bakari Rosales MD Primary Care Provider [phone] Allergies Active Allergy Reactions Criticality Noted Date [...] - PCV) 11/26/2019 04/19/2007 Influenza Vaccine (#1) 2025 04/19/2007 RSV Adult > 60+ Yrs or Pregn ant (1 - 1-dose 75+ series) 2029 Hepatitis B Vaccines Aged Out No long er eligible based on patient's age to complete this topic RSV Ped < 20 months Aged Out No longe r eligible based on patient's age to complete this topic Care Teams Limb Driver Relationship Specialty Start Date End Date Bakari Rosales MD [address] [place] [address] PCP - General Internal Medicine 04/17/17
== END 2025-06-04 14:57 | disposition home or self-care (01) ==
LOC: HO.HOS 14:29
PROVIDERS: Visit Provider Orthopaedic Surgery
DX: M17.11 Unilateral primary osteoarthritis, right knee (principal)
CPT/HCPCS: 20610; 99213

== ENCOUNTER → 2025-06-04 14:28 | Outpatient (BNVA) | payer MEDICARE, BC, SELFPAY | PROVIDERS: Visit Provider Orthopaedic Surgery | DX: M17.11 Unilateral primary osteoarthritis, right knee (principal) | CPT/HCPCS: 20610; 99212; J2003; J7318 ==